=== PATIENT | male | born 1970 | race Caucasian/White ===

== ENCOUNTER 2024-03-07 13:37 | Outpatient (AMB) | payer OTHER, SELFPAY ==
[2024-03-07 13:37] VITALS: BP 118/82; PULSE 68; O2SAT 96; BMI 40.6
--- NOTE | 2024-03-07 13:37 | HO.NEPHOV_ITS ---
HPI HPI Comments History of Present Illness Details 53-year-old man with a history of obesit y and hypertension. About 6 months ago he weighed 331 lb. He has modified his diet and increase his exercise and has cut back on bourbon. He has lost about 50 lb. Amlodipine has been cut down from 10 mg down to 5 mg. Overall is doing very well. No new issues. PFSH Surgical History H/O shoulder surgery H/O knee surgery Family History Mother Cancer Father Heart disease Sister Aneurysm Sister Hypertension Social History Patient Tobacco Use Status: Former Tobacco user Vital Signs 03/07/24 13:37 Height 5 ft 9 in Weight 275 lb BMI 40.6 BP 118/82 Blood Pressure Location Lt brachial Position Sitting Pulse 68 Pulse Source Pulse Oximeter Pulse Oximetry (%) 96 Oxygen Delivery Method Room Air Physical Exam Vital Signs: Last Vital Signs Pulse 68 03/07/24 13:37 BP 118/82 03/07/24 13:37 Pulse Ox 96 03/07/24 13:37 Oxygen Delivery Method Room Air 03/07/24 13:37 BMI result Body Mass Index 40.6 Const General: comfortable Nutritional Appearance: well nourished Orientation/consciousness: patient oriented x3 HEENT Head: No normal to inspection Mouth: moist mucous membranes Neck Neck: Yes supple and Yes no JVD Resp Auscultation: clear to auscultation bilaterally, no rales and rub present Cardio Jugular venous distension: no JVD Palpation: no palpable S3 and no palpable S4 Heart sounds: no rubs GI Palpation (GI): Soft to palpation and nontender Percussion: No Fluid wave present General: Yes no CVA tenderness Back/Spine/Pelvis Back: no CVA tenderness Skin General skin exam: no rashes or lesions noted Neuro General: patient oriented x3 Extrem General: Yes no pedal edema and No clubbing Assessment & Plan Assessment & Plan (1) HTN (hypertension): Code(s): I10 - Essential (primary) hypertension Plan: Middle-aged man with obesity and hypertension. With the weight loss his blood pressure is much better controlled and the requirements for antihypertensive medications are decreasing. Agree with decreasing amlodipine to 5 mg a day. I have encouraged him to keep monitoring blood pressure at home. If the systolic blood pressure drops less than 110 mm Hg I have asked him to cut down on the carvedilol. He is currently on 12.5 mg b.i.d. and he will cut it down to 6.25 mg twice a day. Encouraged him to continue losing weight and to stand low-sodium diet. Orders: Orders Creatinine Urine 11 Months I10 - Essential (primary) hypertension, N05.9 - Unspecified nephritic syndrome with unspecified morphologic changes Total Protein Urine Random 11 Months I10 - Essential (primary) hypertension Basic Metabolic Panel 11 Months I10 - Essential (primary) hypertension UA and rflx microscopic 11 Months I10 - Essential (primary) hypertension Coding Level of Care Code Est Pt Level 4 (83610) Diagnoses HTN (hypertension) I10 Results Reviewed Nephrology Results: No Data to Display
== END 2024-03-07 13:57 | disposition home or self-care (01) ==
PROVIDERS: PCP Internal Medicine; Visit Provider Internal Medicine Hypertension Specialist
DX: I10 Essential (primary) hypertension (principal)
CPT/HCPCS: 99214

== ENCOUNTER → 2024-03-07 13:37 | Outpatient (BNVA) | payer OTHER, SELFPAY | PROVIDERS: PCP Internal Medicine; Visit Provider Internal Medicine Hypertension Specialist ==

== ENCOUNTER 2025-03-06 13:25 | Outpatient (AMB) | payer BC, SELFPAY ==
[2025-03-06 13:20] VITALS: BP 128/70; PULSE 70; O2SAT 97; BMI 37.9
--- NOTE | 2025-03-06 13:20 | HO.NEPHOV ---
Vital Signs 03/06/25 13:20 Height 5 ft 9 in Weight 257 lb BMI 37.9 BP 128/70 Blood Pressure Location Rt brachial Position Sitting Pulse 70 Pulse Source Pulse Oximeter Pulse Oximetry (%) 97 Oxygen Delivery Method Room Air Intake Visit Reasons: Hypertension/ 1 Year FU/ Conf Allergies No Known Allergies Allergy (Verified 03/06/25 13:25) Medication List - Last Reconciled 03/06/25 by Mukesh Iqbal MD amlodipine 5 mg PO DAILY aspirin 81 mg PO DAILY atorvastatin 20 mg PO BEDTIME carvedilol 6.25 mg PO BID lisinopril-hydrochlorothiazide 20-12.5 mg 1 tab PO DAILY HPI Comments Details: 53-year-old man with a history of obesity and hypertension. About 6 months ago he weighed 331 lb. He has modified his diet and increase his exercise and has cut back on bourbon. He has lost about 50 lb. Amlodipine has been cut down from 10 mg down to 5 mg. Overall is doing very well. No new issues. 03/06/25 Feels lightheaded- shirin after exercise Lost more weight with proper diet and daily exercise PFSH Surgical History H/O shoulder surgery H/O knee surgery Family History Mother Cancer Father Heart disease Sister Aneurysm Sister Hypertension Social History Patient Tobacco Use Status: Former Tobacco user Physical Exam Vital Signs: Last Vital Signs Pulse 70 03/06/25 13:20 BP 128/70 03/06/25 13:20 Pulse Ox 97 03/06/25 13:20 Oxygen Delivery Method Room Air 03/06/25 13:20 BMI result Body Mass Index 37.9 Const General: comfortable Nutritional Appearance: well nourished Orientation/consciousness: patient oriented x3 HEENT Head: No normal to inspection Mouth: moist mucous membranes Neck Neck: Yes supple and Yes no JVD Resp Auscultation: clear to auscultation bilaterally, no rales and rub present Cardio Jugular venous distension: no JVD Palpation: no palpable S3 and no palpable S4 Heart sounds: no rubs GI Palpation (GI): Soft to palpation and nontender Percussion: No Fluid wave present General: Yes no CVA tenderness Back/Spine/Pelvis Back: no CVA tenderness Skin General skin exam: no rashes or lesions noted Neuro General: patient oriented x3 Extrem General: Yes no pedal edema and No clubbing Results Reviewed Nephrology Results: No Data to Display Assessment & Plan Assessment & Plan (1) HTN (hypertension): Code(s): I10 - Essential (primary) hypertension Category: Medical Plan: Middle-aged man with obesity and hypertension. With the weight loss his blood pressure is much better controlled and the requirements for antihypertensive medications are decreasing. Since he is feeling dizzy and K is 5.8, I will stop Lisinopril HCT and watch K in a month I have encouraged him to keep monitoring blood pressure at home. Encouraged him to continue losing weight and to stand low-sodium diet. He is due to see his PCP in 3 weeks, If BP remains elevated, can restart HCTZ . Orders: Orders Basic Metabolic Panel 2 Weeks I10 - Essential (primary) hypertension Coding Level of Care Code Est Pt Level 4 (14404) Diagnoses HTN (hypertension) I10
--- OUTSIDE RECORDS SUMMARY | 2025-03-06 16:22 | XMS_ITS | Encounter Summary ---
Author Organization [facility] Address [address] [place] [address] Phone Care Team Providers Care Operational Review Sergeant Name Role Phone Unavailable Primary Care Provider Unavailabl e Encounter Details Date Type Department Care Team (Late st Contact Info) Description 03/25/2021 Orders Only [facility] [address] [place] [address] Mukesh Iqbal MD Other secondary hypertension; Primary hypertension Social History Tobacco Use Types Packs/Day Years Used Date Smoking Tobacco: Former Cigarettes Q uit: 02/25/2017 Cigars Smokeless Tobacco: Never Alcohol Use Standard Drinks/Week Comments Yes 3 (1 standard drink = 0.6 oz pur e alcohol) weekly Sex and Gender Information Value Date Recorded Sex Assigned at Not on file Legal Sex Male 11:08 AM EDT Gender Identity Not on file Sexual Orientation Not on file COVID-19 Exposure Response Date Recorded In the last month, have you been in contact with someone who was confirmed or suspected to have Coronavirus / COVID-19? No / Unsure 03/20/2021 8:56 AM EDT documented as of this encounter Plan of Treatment Not on file documented as of this encounter Procedures Procedure Name Priority Date/Time Associated Diagnosis Comments BASIC METABOLIC PANEL Routine 04/03/2021 7:35 AM EDT Other secondary hypertension Primary hypertension documented in this encounter Results * (ABNORMAL) BMP (04/03/2021 7:35 AM EDT) [facility] Glucose 105(H) (70-99) MG/DL [facility] BUN 22(H) (6-20) MG/DL [facility] Creatinine 1.3(H) (0.7-1.2) MG/DL [facility] Sodium 138 (133-145) MMOL/L [facility] Potassium 4.6 (3.6-5.2) MMOL/L [facility] Chloride 100 (98-107) MMOL/L [facility] Bicarbonate (CO2) 26 (22-29) MMOL/L [facility] Anion Gap 12 (4-17) [facility] Calcium 9.8 (8.6-10.5) MG/DL [facility] Est GFR Non 64 ML/MIN/1.7 3 M2 [facility] Comment: Creatinine based estimated glomerular filtration rate (eGFR) is calculated using the Chronic Kidney Disease Epidemiology Collaboration (CKD-EPI). The CKD-EPI creatinine equation has not been validated in children (<18 years), women or in some racial or ethnic subgroups other than Caucasians and Americans. EST GFR 74 ML/MIN/1.7 3 M2 [facility] Comment: Creatinine based estimated glomerular filtration rate (eGFR) is calculated using the Chronic Kidney Disease Epidemiology Collaboration (CKD-EPI). The CKD-EPI creatinine equation has not been validated in children (<18 years), women or in some racial or ethnic subgroups other than Caucasians and Americans. Testing performed or reported by [facility], a Service of [facility], [address] [address] Ander Rey MD, Residential Care Officer Blood (Blood, Venous) 04/03/2021 7:35 AM EDT 04/03/2021 7:36 AM EDT us Mukesh Iqbal MD LAB BLOOD ORDERABLES Final Res ult [facility] documented in this encounter Visit Diagnoses Diagnosis Other secondary hypertension Primary hypertension documented in this encounter
--- OUTSIDE RECORDS SUMMARY | 2025-03-06 16:22 | XMS_ITS | Encounter Summary ---
Author Organization [facility] Address [address] [place] [address] Phone Care Team Providers Care Circular Ripsaw Operator Name Role Phone Unavailable Primary Care Provider Unavailabl e Encounter Details Date Type Department Care Team (Late st Contact Info) Description 05/21/2021 Orders Only [facility] [address] [place] [address] Mukesh Iqbal MD Primary hypertension Social History Tobacco Use Types [...] on file Sexual Orientation Not on file documented as of this encounter Plan of Treatment Not on file documented as of this encounter Procedures Procedure Name Priority Date/Time Associated Diagnosis Comments HEMOGLOBIN A1C Routine 07/11/2021 7:42 AM EDT Primary hypertension BASIC METABOLIC PANEL Routine 07/11/2021 7:42 AM EDT Primary hypertension documented in this encounter Results * (ABNORMAL) Hemoglobin A1c (07/11/2021 7:42 AM EDT) Hemoglobin A1C 5.9(H) (4.0-5.6) % [facility] Comment: MONITORING: In known diabetic patients, hemoglobin A1c targets should be discussed with health care provider. DIAGNOSTIC USE: ??The [place] Diabetes Association (ADA) and the World Health Organization (WHO) recommend the use of HbA1c to diagnose diabetes using a threshold of 6.5%. Patients who have an HbA1c between 5.7% and 6.4% are considered at increased risk for developing diabetes in the future. CAUTION: Falsely low HbA1c results may be observed in patients with hemolytic anemia, homozygous forms of abnormal hemoglobin (e.g. SS, CC, SC), , recent blood loss or hemoglobin F greater than 7%. Fructosamine may be used as an alternate test in these cases. REFERENCE: ADA: Standards of Medical Care in Diabetes 2020, The Journal of Clinical and Applied Research and Education Volume 43, Supplement 1 Testing performed or reported by [facility], a Service of [facility], [address] [place] [address] Ander Rey MD, Floor Installation Mechanic [facility]# [id number] Blood (Blood, Venous) 07/11/2021 7:42 AM EDT 07/11/2021 7:45 AM EDT Mukesh Iqbal MD LAB BLOOD ORDERABLES Final Res ult [facility] * (ABNORMAL) BMP (07/11/2021 7:42 AM EDT) Pathologist [facility] Glucose 113(H) (70-99) MG/DL [facility] BUN 21(H) (6-20) MG/DL [facility] Creatinine 1.3(H) (0.7-1.2) MG/DL [facility] Sodium 138 (133-145) MMOL/L [facility] Potassium 4.9 (3.6-5.2) MMOL/L [facility] Chloride 104 (98-107) MMOL/L [facility] Bicarbonate (CO2) 27 (22-29) MMOL/L [facility] Anion Gap 7 (4-17) [facility] Calcium 9.6 (8.6-10.5) MG/DL [facility] Est GFR Non 63 ML/MIN/1.7 3 M2 [facility] Comment: Creatinine based estimated glomerular filtration rate (eGFR) is calculated using the Chronic Kidney Disease Epidemiology Collaboration (CKD-EPI). The CKD-EPI creatinine equation has not been validated in children (<18 years), women or in some racial or ethnic subgroups other than Caucasians and Americans. EST GFR 73 ML/MIN/1.7 3 M2 [facility] Comment: Creatinine based estimated glomerular filtration rate (eGFR) is calculated using the Chronic Kidney Disease Epidemiology Collaboration (CKD-EPI). The CKD-EPI creatinine equation has not been validated in children (<18 years), women or in some racial or ethnic subgroups other than Caucasians and Americans. Testing performed or reported by [facility], a Service of [facility], [address] [place] [address] Ander Rey MD, Floor Installation Mechanic [facility]# [id number] Blood (Blood, Venous) 07/11/2021 7:42 AM EDT 07/11/2021 7:45 AM EDT us Mukesh Iqbal MD LAB BLOOD ORDERABLES Final Res ult [facility] documented in this encounter Visit Diagnoses Diagnosis Primary hypertension documented in this encounter
--- OUTSIDE RECORDS SUMMARY | 2025-03-06 16:22 | XMS_ITS | Clinical Summary ---
Author Organization [facility] Address [address] [place] [address] Phone Care Team Providers Care Flexographic Press Set Up Operator Name Role Phone Unavailable Primary Care Provider Unavailabl e Allergies No known active allergies Medications amLODIPine (NORVASC) 10 MG tabletIndication s:Other secondary hypertension,Khushboo estela hypertension Take 10 mg by mouth 1 (one) time each day in the evening 1 Active Aspirin Low Dose 81 MG EC tabletIndication s:Other secondary hypertension,Khushboo estela hypertension Take 1 tablet by mouth daily 1 Active atorvastatin (LIPITOR) 20 MG tablet Take 20 mg by mouth every night 2 Active carvedilol (COREG) 12.5 MG tablet Take 12.5 mg by mouth in the morning and 12.5 mg in the evening. 3 Active sildenafil (VIAGRA) 50 MG tablet TAKE 1 TABLET BY MOUTH DAILY NEEDED FOR ERECTILE DYSFUNCTION 1 HOUR BEFORE SEXUAL ACTIVITY 3 Active lisinopril-hydro CHLOROthiazide (PRINZIDE,ZESTOR ETIC) 20-12.5 MG per tabletIndication s:Other secondary hypertension,Khushboo estela hypertension Take 1 tablet by mouth 1 (one) time each day 30 tablet 11 4 Active Active Problems Problem Noted Date Diagnosed Date Essential hypertension 07/15/2023 3 Ex-cigarette smoker 07/15/2023 07/15/2023 Hyperlipidemia 07/15/2023 07/15/2023 Impaired fasting glycemia 07/15/2023 Morbid obesity 07/15/2023 07/15/2023 Pityriasis versicolor 07/15/2023 07/15/2023 Sebaceous cyst of skin 07/15/2023 Vertigo 07/15/2023 07/15/2023 Immunizations Immunization Administration Dates Next Due Pfizer SARS-COV-2 04/05/2021,03/16/2021 Family History Medical History Relation Comments Heart disease Father Cancer Mother Aneurysm Sister Hypertension Sister Relation Status Comments Father Mother Other Liver cancer 65 yr old when Sister Social History Tobacco Use Types Packs/Day Years Used Date Smoking Tobacco: Former Cigars Smokeless Tobacco: Never Tobacco Cessation:Counseling Given: No Alcohol Use Standard Drinks/Week Comments Yes 3 (1 standard drink = 0.6 oz pur e alcohol) weekly Sex and Gender Information Value Date Recorded Sex Assigned at Not on file Legal Sex Male 11:08 AM EDT Gender Identity Not on file Sexual Orientation Not on file Last Filed Vital Signs Vital Sign Reading Time Taken Comments Blood Pressure 144/84 07/15/2023 3:22 PM EDT Pulse 87 07/15/2023 3:22 PM EDT Temperature - - Respiratory Rate - - Oxygen Saturation 98% 07/15/2023 3:22 PM EDT Inhaled Oxygen Concentration - - Weight 148 kg (326 lb) 07/15/2023 3:22 PM EDT Height 175.3 cm (5' 9 ) 02/25/2021 9:49 AM EDT Body Mass Index 48.14 02/25/2021 9:49 AM EDT Plan of Treatment Health Maintenance Due Date Last Done Comments Hepatitis B Vaccine (1 of 3 - 19+ 3-dose series) 04/30 Pneumococcal Vaccine: 50+ Years (1 of 2 - PCV) 989 Colorectal Cancer Screening: Annual FOBT 2019 Colorectal Cancer Screening: Colonoscopy 2019 Colorectal Cancer Screening: Sigmoidoscopy 2019 Diabetes: Hemoglobin A1C 01/16/2025 07/11/2021 Diabetes: Ophthalmology Exam 01/16/2025 Diabetes: Pedal Pulse Checked 01/16/2025 Diabetes: Sensory Foot Exam 01/16/2025 Diabetes: Visual Foot Exam 01/16/2025 Influenza Vaccine (Season Ended) 2025 Procedures Procedure Name Priority Date/Time Associated Diagnosis Comments HEMOGLOBIN A1C Routine 07/11/2021 7:42 AM EDT Primary hypertension from Last 3 Months or Most Recently Relevant to Health Maintenance Results * (ABNORMAL) Hemoglobin A1c (07/11/2021 7:42 AM EDT) Hemoglobin A1C 5.9(H) (4.0-5.6) % [facility] Comment: MONITORING: In known diabetic patients, hemoglobin A1c targets should be discussed with health care provider. DIAGNOSTIC USE: ??The [place] Diabetes Association (ADA) and the World Health [...] Supplement 1 Testing performed or reported by [facility], a Service of [facility], [address] [place] [address] Ander Rey MD, Supervisor [place] [facility]# [id number] Blood (Blood, Venous) 07/11/2021 7:42 AM EDT 07/11/2021 7:45 AM EDT us Mukesh Iqbal MD LAB BLOOD ORDERABLES Final Res ult [facility] from Last 3 Months or Most Recently Relevant to Health Maintenance Insurance [employer]
== END 2025-03-06 13:41 | disposition home or self-care (01) ==
LOC: HO.HKA 13:25
PROVIDERS: PCP Internal Medicine; Visit Provider Internal Medicine Hypertension Specialist
DX: I10 Essential (primary) hypertension (principal)
CPT/HCPCS: 99214